=== PATIENT | male | born 1990 | race Two or more races ===

== ENCOUNTER → 2024-02-29 | Outpatient (REF) | payer OTHER | LOC: M LABSMT 09:47 | PROVIDERS: ATTEND Urology | DX: Z30.2 Encounter for sterilization (principal) | CPT/HCPCS: 55250; 88302; J0665 ==

== ENCOUNTER → 2024-07-10 | Outpatient (REF) | payer OTHER ==
[2024-07-10 09:40] LABS: SEMEN APPEARANCE OPAQUE (OPAQUE); SEMEN VISCOSITY LIQUID (LIQUID); SEMEN VOLUME 0.9 ml (2.0-5.0); SEMEN pH 8.5 (7.0-8.0); WBC CONCENTRATION <=1 M/ml (<=1 M/ml)
== END ==
LOC: M SMT 09:30
PROVIDERS: ATTEND Urology
DX: Z30.2 Encounter for sterilization (principal)